=== PATIENT | female | born 1960 | race Caucasian/White ===

== ENCOUNTER 2018-11-12 13:07 | Outpatient (CLI) | payer BC ==
--- NOTE | 2018-11-12 14:37 | BD ---
DEXA BONE MINERAL DENSITY STUDY: HISTORY: Asymptomatic menopausal state. COMPARISON: None. FINDINGS: LUMBAR SPINE BMD (g/cm2) T-SCORE Z-SCORE L1 0.829 -1.5 -2.2 L2 0.831 -1.8 -0.4 L3 0.775 -2.8 -1.3 L4 0.718 -3.1 -1.6 TOTAL 0.783 -2.4 -0.0 WHO CLASSIFICATION: Osteopenia. BMD (g/cm2) T-SCORE Z-SCORE LEFT FEMORAL NECK 0.638 -1.9 -0.6 TOTAL LEFT HIP 0.920 -0.2 0.8 WHO CLASSIFICATION: Osteopenia. TEN YEAR FRACTURE RISK: Major osteoporotic fracture: 15% Hip fracture: 1.6% IMPRESSION: Osteopenia with elevated fracture risk. POS: CET
--- NOTE | 2018-11-12 14:39 | MMO ---
Bilateral MAMMO Bilat Screen [facility]. CLINICAL HISTORY: Patient is 58 years old and is seen for screening. The patient has the following family history of breast cancer: cousin female, YOUNGER THAN 50. The patient has no personal history of cancer. VIEWS: The views performed were: bilateral craniocaudal with tomosynthesis and bilateral mediolateral oblique with tomosynthesis. MAMMOGRAM FINDINGS: There are scattered fibroglandular densities. Benign calcifications are noted bilaterally. There are no suspicious masses, suspicious calcifications, or areas of architectural distortion. IMPRESSION: THERE IS NO MAMMOGRAPHIC EVIDENCE OF MALIGNANCY. A ROUTINE FOLLOW-UP MAMMOGRAM IN 1 YEAR IS RECOMMENDED. THE RESULTS OF THIS EXAM WERE SENT TO THE PATIENT. ACR BI-RADS Category 2 - Benign finding MAMMOGRAPHY NOTE: 1. A negative mammogram report should not delay a biopsy if a dominant of clinically suspicious mass is present. 2. Approximately 10% to 15% of breast cancers are not detected by mammography. 3. Adenosis and dense breasts may obscure an underlying neoplasm.
== END 2018-11-12 13:08 | disposition home or self-care (01) ==
LOC: BICMAMMO 13:07
PROVIDERS: ATTEND Family Medicine
DX: Z12.31 Encounter for screening mammogram for malignant neoplasm of breast (principal); Z78.0 Asymptomatic menopausal state; M85.852 Other specified disorders of bone density and structure, left thigh; Z80.3 Family history of malignant neoplasm of breast
CPT/HCPCS: 77063; 77067; 77080